=== PATIENT | female | born 1975 ===

== ENCOUNTER 2017-08-25 04:35 | Emergency (ER) | payer OTHER ==
[~2017-08-25] VITALS: Ht 162.6 cm; Wt 131.5 kg
[~2017-08-25 04:35] MED LIST: COZAAR100 MG
[2017-08-25] MEDS ORDERED: GLIMEPIRIDE1 MG PO (04:52)
[2017-08-25] MEDS ORDERED: METFORMIN HCL500 MG PO (04:52)
[2017-08-25] MEDS ORDERED: URETRON D-S TAB1 TAB PO (08:57)
[2017-08-25] MEDS ORDERED: CIPRO500 MG PO (08:57)
== END 2017-08-25 10:04 | disposition home or self-care (01) ==
LOC: ER 04:35
DX: N39.0 Urinary tract infection, site not specified (principal); R10.31 Right lower quadrant pain

== ENCOUNTER 2019-05-25 14:35 | Emergency (ER) | payer OTHER ==
[~2019-05-25] VITALS: Ht 162.6 cm; Wt 122.5 kg
[~2019-05-25 14:35] MED LIST changes: +CIPRO500 MG PO; +GLIMEPIRIDE1 MG PO; +METFORMIN HCL500 MG PO; +URETRON D-S TAB1 TAB PO
[2019-05-25] MEDS ORDERED: LOSARTAN POTAS100 MG PO (14:49)
[2019-05-25] MEDS ORDERED: METFORMIN HCL1000 MG (14:50)
[2019-05-25] MEDS ORDERED: GLIMEPIRIDE4 MG (14:51)
[2019-05-25] MEDS ORDERED: SINGULAIR10 MG PO (14:51)
[2019-05-25] MEDS ORDERED: METFORMIN HCL500 M3 PO (14:51)
== END 2019-05-25 19:45 | disposition home or self-care (01) ==
LOC: ER 14:35
DX: E86.0 Dehydration (principal)

== ENCOUNTER 2019-10-11 13:23 | Emergency (ER) | payer OTHER ==
[~2019-10-11] VITALS: Ht 162.6 cm; Wt 122.5 kg
[~2019-10-11 13:23] MED LIST changes: +GLIMEPIRIDE4 MG; +LOSARTAN POTAS100 MG PO; +METFORMIN HCL1000 MG; +METFORMIN HCL500 M3 PO; +SINGULAIR10 MG PO
[2019-10-11] MEDS ORDERED: LANTUS SOL100 UNIT/1 (13:53)
== END 2019-10-11 17:58 | disposition home or self-care (01) ==
LOC: ER 13:23
DX: J45.901 Unspecified asthma with (acute) exacerbation (principal); E11.65 Type 2 diabetes mellitus with hyperglycemia; Z20.828 Contact with and (suspected) exposure to other viral communicable diseases

== ENCOUNTER 2019-10-13 05:33 | Emergency (ER) | payer OTHER ==
[~2019-10-13] VITALS: Ht 162.6 cm; Wt 127.0 kg
[~2019-10-13 05:33] MED LIST changes: +LANTUS SOL100 UNIT/1
[2019-10-13] MEDS ORDERED: ALBUTEROL1.25 MG/3 IH (13:24)
[2019-10-13] MEDS ORDERED: DECADRON6 MG PO (13:24)
[2019-10-13] MEDS ORDERED: PEPCID AC20 MG PO (13:24)
[2019-10-13] MEDS ORDERED: ZITHROMAX500 MG PO (13:24)
[2019-10-13] MEDS ORDERED: MELATONIN10 MG PO (13:24)
== END 2019-10-13 13:52 | disposition home or self-care (01) ==
LOC: ER 05:33
DX: B34.9 Viral infection, unspecified (principal); J22 Unspecified acute lower respiratory infection

== ENCOUNTER 2019-10-16 12:28 | Emergency (ER) | payer OTHER ==
[~2019-10-16] VITALS: Ht 160 cm; Wt 117.9 kg
[~2019-10-16 12:28] MED LIST changes: +ALBUTEROL1.25 MG/3 IH; +DECADRON6 MG PO; +MELATONIN10 MG PO; +PEPCID AC20 MG PO; +ZITHROMAX500 MG PO
== END 2019-10-16 21:56 | disposition home or self-care (01) ==
LOC: ER 12:28
DX: R06.02 Shortness of breath (principal); J45.909 Unspecified asthma, uncomplicated; J22 Unspecified acute lower respiratory infection; B34.9 Viral infection, unspecified; E11.65 Type 2 diabetes mellitus with hyperglycemia; Z20.828 Contact with and (suspected) exposure to other viral communicable diseases

== ENCOUNTER 2021-01-11 13:20 | Outpatient (CLI) | payer OTHER | END 2021-01-11 13:27 | disposition home or self-care (01) | LOC: SONOGRAMA 13:20 → MAMO-SONO 14:15 | PROVIDERS: ATTEND Family Medicine | DX: E04.1 Nontoxic single thyroid nodule (principal) ==

== ENCOUNTER 2022-09-19 08:59 | Outpatient (CLI) | payer OTHER | END 2022-09-19 09:05 | disposition home or self-care (01) | LOC: SONOGRAMA 08:59 | PROVIDERS: ATTEND Family Medicine | DX: J45.909 Unspecified asthma, uncomplicated (principal); Z12.31 Encounter for screening mammogram for malignant neoplasm of breast; N63.0 Unspecified lump in unspecified breast; R10.84 Generalized abdominal pain; R06.02 Shortness of breath; Z01.812 Encounter for preprocedural laboratory examination ==

== ENCOUNTER 2022-09-20 13:20 | Outpatient (CLI) | payer OTHER | END 2022-09-20 13:23 | disposition home or self-care (01) | LOC: LAB 13:20 | DX: J45.909 Unspecified asthma, uncomplicated (principal) ==